=== PATIENT | female | born 1965 | race Caucasian/White ===

== ENCOUNTER 2017-05-01 09:00 | Day surgery (SDC) | payer OTHER | END 2017-05-01 13:45 | disposition home or self-care (01) | LOC: AMB-ENDOS 09:00 → CIR.AMB 09:45 → EDBD 09:45 → AMB-ENDOS 13:45 | DX: D12.8 Benign neoplasm of rectum (principal); K57.30 Diverticulosis of large intestine without perforation or abscess without bleeding; Z12.11 Encounter for screening for malignant neoplasm of colon ==